=== PATIENT | female | born 1990 | race American Indian/Alaskan Native ===

== ENCOUNTER 2018-12-07 02:15 | Emergency (ER) | payer SELFPAY ==
[2018-12-07 02:54] VITALS: BP 140/98
[2018-12-07 03:15] LABS: Basophils % (Auto) 0.3 % (0.0-1.8); Eosinophils % (Auto) 0.4 % (0.0-4.3); Lymphocytes # (Auto) 2.4 K/mm3 (1.2-5.4); Mean Corpuscular HGB Conc 30 % (30-34); Monocytes # (Auto) 0.5 K/mm3 (0.0-0.8); Monocytes % (Auto) 5.1 % (0.0-7.3); Platelet Count 391 K/mm3 (140-440); Red Blood Count 4.63 M/mm3 (3.65-5.03)
[2018-12-07 03:19] LABS: Hematocrit 27.1 % (30.3-42.9); Mean Corpuscular Volume 59 fl (79-97)
[2018-12-07 03:20] LABS: Red Cell Distribution Width 20.4 % (13.2-15.2)
[2018-12-07 03:46] LABS: BUN/Creatinine Ratio 9; Blood Urea Nitrogen 7 mg/dL (7-17); Calcium 9.2 mg/dL (8.4-10.2); Hemolysis Index 2
== END 2018-12-07 02:57 | disposition left against medical advice (07) ==
LOC: ED 02:15
DX: Z79.899 Other long term (current) drug therapy (principal); R07.89 Other chest pain; Z53.21 Procedure and treatment not carried out due to patient leaving prior to being seen by health care provider
CPT/HCPCS: 36415; 80048; 85025; 93005; 93010; G0480; 80320

== ENCOUNTER 2020-06-24 04:10 | Emergency (ER) | payer OTHER | END 2020-06-24 04:13 | disposition left against medical advice (07) | LOC: ED 04:10 | DX: R51 Headache (principal); Z53.21 Procedure and treatment not carried out due to patient leaving prior to being seen by health care provider ==